=== PATIENT | female | born 1985 | race Caucasian/White ===

== ENCOUNTER 2018-02-18 22:53 | Emergency (ER) | payer OTHER, SELFPAY ==
[2018-02-18 22:54] VITALS: BP 141/99; PULSE 100; RESP 16; TEMP 37.3; O2SAT 98; BMI 32.2
--- NOTE | 2018-02-19 00:28 | ED.DCSUM_ITS ---
- ER Visit Summary Date of Service: 02/19/18 Chief Complaint: Right fifth finger infection History of Present Illness: The patient is a 32 F who states she pulled a hangnail off her right fifth finger approximately 2 and half weeks ago. She had increasing swelling along the nail since that time. 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 Physical Examination: Vital signs grossly unremarkable. Patient sitting upright in bed no acute distress. Right upper extremity examination reveals paronychia on the radial side of the right fifth fingernail. She is full range of motion with no tenderness of the flexor or extensor tendons. Test Results: [] Emergency Department Course and Treatment: Digital block is performed with 3 cc 1% lidocaine. Incision is made with a #11 blade. There is return of blood but no significant pus. Wound is explored with curved hemostats. Wound is cleansed and dressed. She will be treated with Bactrim and Keflex. Treatment Plan: [] Disposition: Discharge Impression: Paronychia status post I&D This note was generated with [employer] dictation software. It may contain incorrect words, spelling, and punctuation that were not noted in review of the chart prior to signing ED Disposition - Plan for ED Patient: Disposition: Home or Assisted Living Chief Complaint: Upper Extremity Injury Instructions: ED Fingernail Infec Prescriptions: Cephalexin [Keflex] 500 mg PO Q6 #40 capsule Smz/Tmp Ds [Bactrim Ds] 1 tablet PO BID #20 tablet Referrals: Lukas Garcia MD [STAFF PHYSICIAN] - As Needed
[2018-02-19] MEDS: Cephalexin 250 MG Capsule 500 MG PO (00:38)
[2018-02-19] MEDS: Smz/Tmp Ds Tablet 1 TABLET PO (00:38)
[2018-02-19 00:40] VITALS: RESP 18; O2SAT 99
== END 2018-02-19 00:41 | disposition home or self-care (01) ==
PROVIDERS: Emergency Provider Emergency Medicine
DX: L03.011 Cellulitis of right finger (principal); Z87.891 Personal history of nicotine dependence
CPT/HCPCS: 10060; 99283